=== PATIENT | male | born 1970 | race Caucasian/White ===

== ENCOUNTER 2025-09-13 13:54 | Outpatient (AMB) | payer OTHER, SELFPAY ==
--- NOTE | 2025-09-13 14:04 | A.OFFVIS_ITS ---
Vital Signs 09/13/25 14:17 Height 6 ft Weight 306 lb BMI 41.5 Intake Visit Reasons: ing hernia Intake Note: Patient presents for an assessment for umbilical hernia. Pt c/o; reports bulge, navel, reports he plays softball and notices some discomfort but no excrucating pain/discomfort. [employer] Required: No Accompanied by: Self / Same As Patient Allergies No Known Allergies Allergy (Verified 09/13/25 14:19) Medication List - Last Reconciled 09/13/25 by Michele Joe MD albuterol sulfate 90 mcg/actuation (Ventolin HFA) 2 puffs inhalation Q6H PRN escitalopram oxalate 10 mg PO DAILY semaglutide (weight loss) (Wegovy) mg subcut HPI HPI ing hernia: Details: 59-year-old male referred for a ventral hernia. He has noticed this mass on the abdominal above his umbilicus for about a year. He says that sometimes this gets bigger especially when he is standing up He denies GI complaints. He says that this has been causing some discomfort. He is morbidly obese but says he had been trying to be active to lose some weight recently. [facility] Medical History (Updated 09/13/25 @ 14:32 by Michele Joe MD) Epigastric hernia Depression Obese Surgical History History of vasectomy (~04/11/18) History of colonoscopy (~04/19/19) History of colonoscopy (~12/26/24) History of orthopedic surgery Family History Maternal Grandfather Malignant neoplasm of colon Brother Malignant neoplasm of colon Mother Hypertensive disorder Father Motor vehicle accident victim Social History Alcohol intake: current Alcohol intake frequency: holidays/special occasions only Patient Tobacco Use Status: Never used Tobacco Review of Systems Const Denies chills and Denies fever(s) Card Denies chest pain, Denies dyspnea and Denies dyspnea on exertion Resp Denies cough, Denies dyspnea and Denies dyspnea on exertion GI Denies hematochezia and Denies change in bowel habits Denies hematuria and Denies difficulty urinating Musc Denies back pain and Denies limited range of motion Neuro Denies focal weakness and Denies convulsions Psych Denies depression and Denies mood swings Physical Exam Vital Signs: BMI result Body Mass Index 41.5 Const Other: Morbidly obese General: comfortable and no acute distress Orientation/consciousness: patient oriented x3 Neck Neck: Yes no lymphadenopathy Resp Auscultation: clear to auscultation bilaterally Cardio Rhythm: regular rhythm GI Other: Palpable epigastric hernia, just above the umbilicus, about 3 cm, nonreducible Palpation (GI): Soft to palpation, nontender and no guarding Neuro General: patient oriented x3 Assessment & Plan Assessment & Plan (1) Epigastric hernia: Code(s): K43.9 - Ventral hernia without obstruction or gangrene Category: Medical Plan: He has this epigastric hernia as described above. He wants this repaired. I explained to him the technique of repair with possible mesh placement. I reviewed the risks including but not limited to bleeding, infections, recurrence, bowel injury, inherent risks of anesthesia, as well as the benefits and alternatives. I explained to him what to expect postoperatively He is morbidly obese so understands this has perioperative risks are higher He says he wants to proceed and understands the procedure well. Coding Level of Care Code New Pt Level 3 (20096) Diagnoses Epigastric hernia K43.9
[2025-09-13 14:17] VITALS: BMI 41.5
--- OUTSIDE RECORDS SUMMARY | 2025-09-13 16:41 | XMS_ITS | Data Portability ---
Author Organization [facility], Main Office Address [address] [place] [address] Care Team Providers Care Contracts Officer Name Role Phone SHARON WHITESIDE [employer] ROSA LEMOS Primary Care Provider MARIA DEL CARMEN PHAM Urologist Assessment No assessment recorded. Plan of Treatment Reminders Order Date Submit Date Provider Last Modified By Organization Details Last Modified Time Details Appointments FOLLO W UP 2025 10:30A M Rosa Lemos PALamonte Not available Not available Not available Lab PSA, total , serum or plasm a 2024 025 ILIANA [facility] (Centralized Electronic Ordering - All Locations), Patient Can Go To The Location Of Their Choice, 07/15/2025 08:07:32 TSH, ultra -sens itive , serum 2024 025 ILIANA [facility] (Centralized Electronic Ordering - All Locations), Patient Can Go To The Location Of Their Choice, 07/04/2025 14:06:30 lipid panel , serum 2024 025 ILIANA [facility] (Centralized Electronic Ordering - All Locations), Patient Can Go To The Location Of Their Choice, 07/04/2025 14:06:29 BMP, serum or plasm a 2024 025 ILIANA [facility] (Centralized Electronic Ordering - All Locations), Patient Can Go To The Location Of Their Choice, 07/04/2025 14:06:28 testo stero ne, free + total , serum 2024 025 ILIANA [facility] (Centralized Electronic Ordering - All Locations), Patient Can Go To The Location Of Their Choice, [id number] 07/04/2025 14:06:29 lipid panel , serum 2023 025 [email or web address] [facility] (Centralized Electronic Ordering - All Locations), Patient Can Go To The Location Of Their Choice, [id number] 07/13/2025 10:40:40 TSH + free T4, serum 2023 024 ILIANA [facility] (Centralized Electronic Ordering - All Locations), Patient Can Go To The Location Of Their Choice, [id number] 07/26/2024 08:08:30 PSA, total , serum or plasm a 2023 024 ILIANA [facility] (Centralized Electronic Ordering - All Locations), Patient Can Go To The Location Of Their Choice, [id number] 07/26/2024 08:08:31 Referral endoc rinirasema ogkennedy refer ral - Male hypog onadi sm. Inter ested in testo stero ne repla pete t. 2024 [facility]25 [facility] [address] [facility], [place], [address], 09/05/2025 13:35:19 sleep medic ine refer ral - Morbi d obesi ty,fa tigue . 2023 024 Sleep Medicine Services [facility], [address], [address], [place], [address], 09/22/2024 13:30:03 gastr rachel barros ist refer ral - F/u colon oscop y/ 2023 024 [email or web address] Whiteside MD, [address] [facility], [place], [address], 07/26/2024 10:38:54 Procedures None recor ded. Surgeries None recor ded. Imaging US, abdom inal wall - ? umbil ical herni a. 2024 025 [email or web address] [facility] (Ultrasound), [address] [place] [address], [address], 07/27/2025 13:15:52 Medication Orders Wegov y 1 mg/0. 5 mL subcu taneo us pen injec tor 2024 025 [facility] #[id number], [address] [place], [address], 07/14/2025 10:00:59 Zepbo und 7.5 mg/0. 5 mL subcu taneo us solut ion 2024 025 [facility] #[id number], [address] [place], [address], 04/24/2025 13:14:06 Wegov y 1 mg/0. 5 mL subcu taneo us pen injec tor 2023 024 [email or web address] [facility]acy #[id number], [address] [place], [address], 07/14/2025 09:24:51 Wegov y 0.5 mg/0. 5 mL subcu taneo us pen injec tor 2023 024 [id number], [address] [place], [address], 05/26/2025 09:54:55 Patient TargetsNo targets recorded. Patient Instructions Encounter Date Encounter Id Patient Instructions Last Modified By Organization Details Last Modified Time 07/11/2024 [id number] insomnia: care instructions Not available 07/11/2024 09:30:39 high cholesterol : care instructions Not available 07/11/2024 09:30:39 body mass index: care instructions Not available 07/11/2024 09:30:38 learning about healthy weight Not available 07/11/2024 09:30:38 hypothyroidism: care instructions Not available 07/11/2024 09:30:39 benign prostatic hyperplasia: care instructions Not available 07/11/2024 09:30:39 08/26/2024 [id number] body mass index: care instructions Not available 08/26/2024 11:17:01 learning about healthy weight Not available 08/26/2024 11:17:01 high cholesterol : care instructions Not available 08/26/2024 11:17:01 12/21/2024 [id number] body mass index: care instructions Not available 12/21/2024 09:37:15 learning about healthy weight Not available 12/21/2024 09:37:15 sleep apnea: car e instructions Not available 12/21/2024 09:37:15 hypogonadism: care instructions Not available 12/21/2024 09:37:15 03/24/2025 [id number] body mass index: care instructions Not available 03/24/2025 09:01:09 learning about healthy weight Not available 03/24/2025 09:01:09 sleep apnea: car e instructions Not available 03/24/2025 09:25:32 hypogonadism: care instructions Not available 03/24/2025 09:33:05 07/14/2025 [id number] insomnia: care instructions Not available 07/14/2025 10:00:57 body mass index: care instructions Not available 07/14/2025 09:45:52 learning about healthy weight Not available 07/14/2025 09:45:52 sleep apnea: car e instructions Not available 07/14/2025 09:53:40 hypothyroidism: care instructions Not available 07/14/2025 09:45:52 Reason for Referral [employer] Tender Referral for Screening for malignant neoplasm of colon F/u colonoscopy/ Referring Physician: Rosa Lemos, Internal Medicine, Encounter Date: 07/11/2024 Sleep Medicine Referral for Body mass index 40+ - severely obese Morbid obesity,fatigue. Referring Physician: Rosa Lemos Internal Medicine, Encounter Date: 07/11/2024 Endocrinology Referral for H ypothyroidism Male hypogonadism. Interested in testosterone replacement. Referring Physician: Rosa Lemos, Internal Medicine, Encounter Date: 07/14/2025 Results Created Date Observation Date Name Description Value Unit Range Abnormal Flag Note LastModifiedBy Organization Detail LastModifiedTime 07/05/20 24 07/06/2024 COMP. METAB OLIC PANEL (14) glucose 98 mg/dL 70-99 normal Not Available [facility] ([facility]) [address] [place], [address], 07/06/2024 06:09:50 07/05/20 24 07/06/2024 COMP. METAB OLIC PANEL (14) BUN 16 mg/dL 6-24 normal Not Available [facility] ([facility]) [address] [place], [address], 07/06/2024 06:09:50 07/05/20 24 07/06/2024 COMP. METAB OLIC PANEL (14) creatinine 1.07 mg/dL 0.76-1 .27 normal Not Available [facility] ([facility]) [address] [place], [address], 07/06/2024 06:09:50 07/05/20 24 07/06/2024 COMP. METAB OLIC PANEL (14) eGFR 82 mL/mi n/1.7 3 >59 normal Not Available [facility] ([facility]) [address] [place], [address], 07/06/2024 06:09:50 07/05/20 24 07/06/2024 COMP. METAB OLIC PANEL (14) BUN/creatini ne ratio 15 9-20 normal Not Available [facility] ([facility]) [address] [place], [address], 07/06/2024 06:09:50 07/05/20 24 07/06/2024 COMP. METAB OLIC PANEL (14) sodium 141 mmol/ L 134-14 4 normal Not Available [facility] ([facility]) [address] [place], [address], 07/06/2024 06:09:50 07/05/20 24 07/06/2024 COMP. METAB OLIC PANEL (14) potassium 4.7 mmol/ L 3.5-5. 2 normal Not Available [facility] ([facility]) [address] [place], [address], 07/06/2024 06:09:50 07/05/20 24 07/06/2024 COMP. METAB OLIC PANEL (14) chloride 105 mmol/ L 96-106 normal Not Available [facility] ([facility]) [address] [place], [address], 07/06/2024 06:09:50 07/05/20 24 07/06/2024 COMP. METAB OLIC PANEL (14) carbon dioxide, total 21 mmol/ L 20-29 normal Not Available [facility] ([facility]) [address] [place], [address], 07/06/2024 06:09:50 07/05/20 24 07/06/2024 COMP. METAB OLIC PANEL (14) calcium 9.7 mg/dL 8.7-10 .2 normal Not Available [facility] ([facility]) [address] [place], [address], 07/06/2024 06:09:50 07/05/20 24 07/06/2024 COMP. METAB OLIC PANEL (14) protein, total 6.7 g/dL 6.0-8. 5 normal Not Available [facility] ([facility]) [address] [place], [address], 07/06/2024 06:09:50 07/05/20 24 07/06/2024 COMP. METAB OLIC PANEL (14) albumin 4.3 g/dL 3.8-4. 9 normal Not Available [facility] ([facility]) [address] [place], [address], 07/06/2024 06:09:50 07/05/20 24 07/06/2024 COMP. METAB OLIC PANEL (14) globulin, total 2.4 g/dL 1.5-4. 5 Not Available [facility] ([facility]) [address] [place], [address], 07/06/2024 06:09:50 07/05/20 24 07/06/2024 COMP. METAB OLIC PANEL (14) bilirubin, total 0.3 mg/dL 0.0-1. 2 normal Not Available [facility] ([facility]) [address] [facility] [place], [address], 07/06/2024 06:09:50 07/05/20 24 07/06/2024 COMP. METAB OLIC PANEL (14) alkaline phosphatase 67 IU/L 44-121 normal Not Available [facility] ([facility]) [address] [facility] [place], [address], 07/06/2024 06:09:50 07/05/20 24 07/06/2024 COMP. METAB OLIC PANEL (14) AST (SGOT) 18 IU/L 0-40 normal Not Available [facility] ([facility]) [address] [facility] [place], [address], 07/06/2024 06:09:50 07/05/20 24 07/06/2024 COMP. METAB OLIC PANEL (14) ALT (SGPT) 17 IU/L 0-44 normal Not Available [facility] ([facility]) [address] [facility] [place], [address], 07/06/2024 06:09:50 07/05/20 24 07/06/2024 LIPID PANEL cholesterol, total 279 mg/dL 100-19 9 above high normal Not Available [facility] ([facility]) [address] [facility] [place], [address], 07/06/2024 06:09:50 07/05/20 24 07/06/2024 LIPID PANEL triglyceride s 215 mg/dL 0-149 above high normal Not Available [facility] ([facility]) [address] [place], [address], 07/06/2024 06:09:50 07/05/20 24 07/06/2024 LIPID PANEL HDL cholesterol 49 mg/dL >39 normal Not Available [facility] ([facility]) [address] [facility] [place], [address], 07/06/2024 06:09:50 07/05/20 24 07/06/2024 LIPID PANEL VLDL cholesterol karly 41 mg/dL 5-40 above high normal Not Available [facility] ([facility]) [address] [facility] [place], [address], 07/06/2024 06:09:50 07/05/20 24 07/06/2024 LIPID PANEL LDL chol calc ([facility]) 189 mg/dL 0-99 above high normal Not Available [facility] ([facility]) [address] [facility] [place], [address], 07/06/2024 06:09:50 07/05/20 24 07/06/2024 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 Not Available [facility] ([facility]) [address] [facility] [place], [address], 07/06/2024 06:09:50 07/25/2007/26/2024 LIPID PANEL cholesterol, total 248 mg/dL 100-19 9 above high normal Not Available [facility] ([facility]) [address] [facility] [place], [address], 07/26/2024 08:08:27 07/25/2007/26/2024 LIPID PANEL triglyceride s 214 mg/dL 0-149 above high normal Not Available [facility] ([facility]) [address] [facility] [place], [address], 07/26/2024 08:08:27 07/25/2007/26/2024 LIPID PANEL HDL cholesterol 45 mg/dL >39 normal Not Available [facility] ([facility]) [address] [place], [address], 07/26/2024 08:08:27 07/25/2007/26/2024 LIPID PANEL VLDL cholesterol karly 40 mg/dL 5-40 Not Available [facility] ([facility]) [address] [place], [address], 07/26/2024 08:08:27 07/25/2007/26/2024 LIPID PANEL LDL chol calc ([facility]) 163 mg/dL 0-99 above high normal Not Available [facility] ([facility]) [address] [place], [address], 07/26/2024 08:08:27 07/25/2007/26/2024 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 Not Available [facility] ([facility]) [address] [place], [address], 07/26/2024 08:08:27 07/25/2007/26/2024 ALT (SGPT ) ALT (SGPT) 12 IU/L 0-44 normal Not Available [facility] ([facility]) [address] [place], [address], 07/26/2024 08:08:28 07/25/2007/26/2024 TSH+F REE T4 TSH 3.120 uIU/m L 0.450- 4.500 normal Not Available [facility] ([facility]) [address] [place], [address], 07/26/2024 08:08:30 07/25/2007/26/2024 TSH+F REE T4 T4,free(dire ct) 1.21 NG/dL 0.82-1 .77 normal Not Available [facility] ([facility]) [address] [place], [address], 07/26/2024 08:08:30 07/25/2007/26/2024 PROST ATE-S PECIF IC AG prostate specific Ag 0.4 NG/mL 0.0-4. 0 normal Isna ECLIA metho dolog y. Accor ding to the Ameri can Urolo gical Assoc iatio n, Serum PSA shoul d decre ase and remai n at undet ectab le level s after radic al prost atect scarlett. The AUA defin es bioch emica l recur rence as an initi al PSA value 0.2 ng/mL or great er follo wed by a subse quent confi rmato ry PSA value 0.2 ng/mL or great er. Value s obtai makenzie with diffe rent assay metho ds or kits canno t be used inter guillaume eably . Resul ts canno t be inter prete d as absol chipewwa evide nce of the prese nce or absen ce of raúl gallardo se. Not Available [facility] ([facility]) [address] [facility], [place], [address], 07/26/2024 08:08:31 07/25/2007/26/2024 TESTO STERO NE,FR EE AND TOTAL testosterone 176 NG/dL 264-91 6 below low normal Adult male refer ence inter masha is based on a popul ation of healt hy nonob mo males (BMI <30) betwe en 19 and 39 years old. Mayra willis, et.al . JCEM 2017, 102;1 161-1 173. PMID: 74771 103. Not Available [facility] ([facility]) [address] [facility], [place], [address], 07/26/2024 20:06:29 07/25/2007/26/2024 TESTO STERO NE,FR EE AND TOTAL free testosterone (direct) 2.9 pg/mL 7.2-24 .0 below low normal Not Available [facility] ([facility]) [address] [facility], [place], [address], 07/26/2024 20:06:29 07/03/20 25 07/04/2025 BASIC METAB OLIC PANEL (8) glucose 91 mg/dL 70-99 normal Not Available [facility] ([facility]) [address] [place], [address], 07/04/2025 14:06:28 07/03/20 25 07/04/2025 BASIC METAB OLIC PANEL (8) BUN 13 mg/dL 6-24 normal Not Available [facility] ([facility]) [address] [place], [address], 07/04/2025 14:06:28 07/03/20 25 07/04/2025 BASIC METAB OLIC PANEL (8) creatinine 1.16 mg/dL 0.76-1 .27 normal Not Available [facility] ([facility]) [address] [place], [address], 07/04/2025 14:06:28 07/03/20 25 07/04/2025 BASIC METAB OLIC PANEL (8) eGFR 74 mL/mi n/1.7 3 >59 normal Not Available [facility] ([facility]) [address] [place], [address], 07/04/2025 14:06:28 07/03/20 25 07/04/2025 BASIC METAB OLIC PANEL (8) BUN/creatini ne ratio 11 9-20 normal Not Available [facility] ([facility]) [address] [place], [address], 07/04/2025 14:06:28 07/03/20 25 07/04/2025 BASIC METAB OLIC PANEL (8) sodium 139 mmol/ L 134-14 4 normal Not Available [facility] ([facility]) [address] [place], [address], 07/04/2025 14:06:28 07/03/20 25 07/04/2025 BASIC METAB OLIC PANEL (8) potassium 4.2 mmol/ L 3.5-5. 2 normal Not Available [facility] ([facility]) [address] [place], [address], 07/04/2025 14:06:28 07/03/20 25 07/04/2025 BASIC METAB OLIC PANEL (8) chloride 103 mmol/ L 96-106 normal Not Available [facility] ([facility]) [address] [place], [address], 07/04/2025 14:06:28 07/03/20 25 07/04/2025 BASIC METAB OLIC PANEL (8) carbon dioxide, total 21 mmol/ L 20-29 normal Not Available [facility] ([facility]) [address] [place], [address], 07/04/2025 14:06:28 07/03/20 25 07/04/2025 BASIC METAB OLIC PANEL (8) calcium 9.6 mg/dL 8.7-10 .2 normal Not Available [facility] ([facility]) [address] [place], [address], 07/04/2025 14:06:28 07/03/20 25 07/04/2025 LIPID PANEL cholesterol, total 231 mg/dL 100-19 9 above high normal Not Available [facility] ([facility]) [address] [place], [address], 07/04/2025 14:06:29 07/03/20 25 07/04/2025 LIPID PANEL triglyceride s 193 mg/dL 0-149 above high normal Not Available [facility] ([facility]) [address] [place], [address], 07/04/2025 14:06:29 07/03/20 25 07/04/2025 LIPID PANEL HDL cholesterol 48 mg/dL >39 normal Not Available [facility] ([facility]) [address] [place], [address], 07/04/2025 14:06:29 07/03/20 25 07/04/2025 LIPID PANEL VLDL cholesterol karly 35 mg/dL 5-40 Not Available [facility] ([facility]) [address] [place], [address], 07/04/2025 14:06:29 07/03/20 25 07/04/2025 LIPID PANEL LDL chol calc ([facility]) 148 mg/dL 0-99 above high normal Not Available [facility] ([facility]) [address] [place], [address], 07/04/2025 14:06:29 07/03/20 25 07/04/2025 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 Mayra willis et.al . JCEM 2017, 102;1 161-1 173. PMID: 74608 103. Not Available [facility] ([facility]) [address] [place], [address], 07/04/2025 14:06:29 07/03/20 25 07/04/2025 TESTO STERO NE,FR EE AND TOTAL free testosterone (direct) 4.3 pg/mL 7.2-24 .0 below low normal Not Available [facility] ([facility]) [address] [place], [address], 07/04/2025 14:06:29 07/03/20 25 07/04/2025 TSH TSH 4.370 uIU/m L 0.450- 4.500 normal Not Available [facility] ([facility]) [address] [facility], [place], [address], 07/04/2025 14:06:30 07/14/20 25 07/15/2025 PROST ATE-S PECIF IC AG prostate specific Ag 0.4 NG/mL 0.0-4. 0 normal Sina ECLIA metho dolog y. Accor ding to the Ameri can Urolo gical Assoc iatio n, Serum PSA shoul d decre ase and remai n at undet ectab le level s after radic al prost atect scarlett. The AUA defin es bioch emica l recur rence as an initi al PSA value 0.2 ng/mL or great er follo wed by a subse quent confi rmato ry PSA value 0.2 ng/mL or great er. Value s obtai makenzie with diffe rent assay metho ds or kits canno t be used inter guillaume eably . Resul ts canno t be inter prete d as absol chipewwa evide nce of the prese nce or absen ce of raúl gallardo se. Not Available [facility] ([facility]) [address] [facility], [place], [address], 07/15/2025 08:07:32 12/27/19 colon oscop y No observ ation record ed. [address], [address], 03/24/2025 09:00:12 07/28/20 25 07/28/2025 US, abdom en US Soft Tissue Abdome n Reason : R10.33 PERIUM BILICA L PAIN COMPAR LADI: None. FINDIN GS: High-r esolut ion, linear array imagin g of the superf icial soft tissue s of the suprau mbilic al region was perfor med in the area of the patien t's sympto ms. Examin ation was perfor med both withou t and with Valsal va, in the supine and standi ng positi ons. There is a fat-co ntaini ng midlin e hernia with sac measur ing 5.6 x 2.6 x 6.1 cm and neck 1.6 x 2.2 cm. Trace fluid noted within the sac. There is no sonogr aphica lly appare nt mass or fluid collec tion. IMPRES UMBERTO: Suprau mbilic al midlin e fat-co ntaini ng ventra l hernia with sac measur ing up to 6.1 cm and neck 1.6 x 2.2 cm. WSN: [id number] Orderi ng Physic miguel: Johnny Lemos ia Dictat ed By: Marcio Goldberg MD Dictat ed Date/T erika: 5:01 pm Review ed By: Marcio Goldberg MD Signed By: Marcio Goldberg MD Signed Date/T erika: 5:01 pm Transc ribed By: BERNARDO Transc ribed Date/T erika: 4:58 pm Patien t Class: Outpat ient [facility] (Outpt Imaging) [address] [place], [address], 08/03/2025 17:05:39 07/28/2007/28/2025 US, abdom inal wall No observ ation record ed. [facility] [address], [place], [address], 08/03/2025 18:44:13 Result Notes None recorded. Problems Name Problem SNOMED Code Status Onset Date Resolution Date Notes Provider Name and Address Organization Details Recorded Time Hypothyroid ism [id number] Active 2018 Rosa Lemos PA-C [address], [place], [address], [facility] 9 10:23:37 Insomnia 463922493 Active 2023 Rosa Lemos PA-C [address], [place], [address], [facility] 4 13:18:55 Generalized anxiety disorder 41940958 Active 2023 Rosa Lemos PA-C [address], [place], [address], [facility] 4 14:24:42 Mixed hyperlipide imelda 672769288 Active 2023 Rosa Lemos PA-C [address], [place], [address], [facility] 4 08:49:34 Hypogonadis m 28995341 Active 2023 Rosa Lemos PA-C [address], [place], [address], [facility] 4 13:56:45 Morbid obesity 642509301 [facility] 14:11:39 Obstructive sleep apnea syndrome 05029542 Active 2024 moderate as per sleep medicine JUVENTINO Keyes, [facility] 5 16:12:43 Body mass index 40+ - severely obese 574290476 Active 2024 Rosa Lemos PA-C [address], [place], [address], [facility] 5 08:59:42 Abdominal mass 358840219 Active 2024 Rosa Lemos PA-C [address], [place], [address], [facility] 5 12:50:24 Problem Notes None recorded. Procedures Surgical History Date Name Laterality Status Provider Name and Address Organization Details Recorded Time 5 Colonoscopy completed Mesha Reardon MA [facility] 07/14/2025 09:26:39 9 Colonoscopy completed Mesha Reardon MA [facility] 07/14/2025 09:26:28 8 vasectomy completed Bhumi Wallis MA [facility] 01/07/2019 13:07:40 Orthopedic Surgery completed Bhumi Wallis MA [facility] 01/05/2018 13:00:13 Imaging Results None recorded. Procedure Notes None recorded. Medical Equipment None Reported. Allergies No known drug allergies Medications Name Sig Start Date Stop Date Status Note LastModified by Organization Details LastModified Time trazodone 50 mg tablet TAKE 1 TABLET BY MOUTH EVERY DAY 03/24 completed Not Available Not Available Not Available sildenafi l 50 mg tablet Take 1 tablet every day by oral route for 9 days. 08/26 completed Not Available Not Available Not Available azithromy adrian 250 mg tablet 05/06 completed Not Available Not Available Not Available prednison e 20 mg tablet TO START TOMORROW MORNING, 02/26/25. TAKE 3 TABLETS BY MOUTH DAILY FOR 4 DAYS 03/24 completed Not Available Not Available Not Available doxycycli ne monohydra te 100 mg tablet 1 TABLET BY MOUTH 2 TIMES A DAY,X7 DAYS,INS TR:AVOID UV LIGHT EXPOSURE WHILE TAKING THIS MEDICATI ON. 03/24 completed Not Available Not Available Not Available benzonata te 100 mg capsule 05/06 completed Not Available Not Available Not Available albuterol sulfate HFA 90 mcg/actua tion aerosol inhaler INHALE 2 PUFFS BY MOUTH EVERY 4 HOURS NEEDED FOR SHORTNES S OF BREATH OR WHEEZING active Not Available Not Available No t Available escitalop maryana 10 mg tablet TAKE 1 TABLET BY MOUTH EVERY DAY 2024 active Not Available Not Available Not Avai lable rosuvasta tin 20 mg tablet Take by oral route for 90 days. 12/21 completed 12/21/24 patient never started and states he already made Rosa aware Not Available Not Available Not Available sodium,po tassium,m ag sulfates 17.5 gram-3.13 gram-1.6 gram oral soln TAKE 177ML BY MOUTH FOR 2 DOSES. SEE INSTRUCT IONS PROVIDED BY OFFICE. 12/21 completed Not Available Not Available Not Available Wegovy 2.4 mg/0.75 mL subcutane ous pen injector INJECT 2.4 MG SUBCUTAN EOUSLY EVERY WEEK 02/22 completed no longer covered by pt's insuranc e. Not Available Not Available Not Available Wegovy 1.7 mg/0.75 mL subcutane ous pen injector Inject 1.7 mg every week by subcutan eous route for 30 days. 12/07 completed Not Available Not Available Not Available Wegovy 1 mg/0.5 mL subcutane ous pen injector INJECT 1 MG SUBCUTAN EOUSLY EVERY WEEK FOR 30 DAYS. active Not Available Not Available No t Available Wegovy 0.25 mg/0.5 mL subcutane ous pen injector active Not Available Not Available Not Available Wegovy 0.5 mg/0.5 mL subcutane ous pen injector INJECT 0.5 MG SUBCUTAN EOUSLY EVERY WEEK FOR 30 DAYS. 05/26 completed Not Available Not Available Not Available Zepbound 10 mg/0.5 mL subcutane ous pen injector Inject 10 mg every week by subcutan eous route for 30 days. 04/25 completed Not Available Not Available Not Available Zepbound 5 mg/0.5 mL subcutane ous pen injector INJECT 5 MG SUBCUTAN EOUSLY WEEKLY 03/24 completed Not Available Not Available Not Available Zepbound 7.5 mg/0.5 mL subcutane ous solution Inject 7.5 mL every week by subcutan eous route for 30 days. 04/24 completed Not Available Not Available Not Available Vitals Date Recorded Body height Body mass index (BMI) Body weight Heart rate Oxygen saturation Body temperature Systolic And Diastolic Provider Name and Address Organization Details Last Updated DateTime 184.15 cm 41.2 kg/m2 009173. 45 g 82 /min 97 % 97.5 [degF] 125/89 mm[Hg] Valerie Patel [facility] [place] 08:52:05 Date Recorded Body weight Body mass index (BMI) Body height Provider Name and Address Organization Details Last Updated DateTime 02/22/2025 679290.3 g 40.3 kg/m2 184.15 cm Hali Dunlap LPN [facility] [place] 02/22/2025 14:52:57 Date Recorded Body height Body mass index (BMI) Body weight Oxygen saturation Heart rate Body temperature Systolic And Diastolic Provider Name and Address Organization Details Last Updated DateTime 5 184.15 cm 40.3 kg/m2 602388. 7 g 97 % 78 /min 97.9 [degF] 117/72 mm[Hg] [facility] Reardon [facility] 08:49:27 Date Recorded Body height Body mass index (BMI) Body weight Heart rate Oxygen saturation Body temperature Systolic And Diastolic Provider Name and Address Organization Details Last Updated DateTime 4 184.15 cm 41.5 kg/m2 747102. 63 g 87 /min 96 % 98 [degF] 128/85 mm[Hg] Hawa bazzi MA [facility] 4 08:38:40 Date Recorded Body height Body mass index (BMI) Body weight Oxygen saturation Heart rate Body temperature Systolic And Diastolic Provider Name and Address Organization Details Last Updated DateTime 5 184.15 cm 41.4 kg/m2 891768. 44 g 97 % 71 /min 98 [degF] 119/77 mm[Hg] Mesha Reardon MA [facility] [place] 5 09:23:58 Date Recorded Body height Body mass index (BMI) Body weight Heart rate Oxygen saturation Body temperature Systolic And Diastolic Provider Name and Address Organization Details Last Updated DateTime 4 184.15 cm 41.9 kg/m2 606956. 81 g 69 /min 95 % 98 [degF] 120/83 mm[Hg] Hali Dunlap LPN [facility] [place] 4 11:00:40 Social History Question Answer Notes LastModified by Organizat ion Details LastModified Time Tobacco Smoking Status Never Smoker Bhumi maradiaga [facility] 01/05/2018 12:58:59 Is Blood Transfusion Acceptable In An Emergency? Yes Information not available 01/05/2018 What Is Your Level Of Caffeine Consumption? Moderate Soda Information not available 01/07/2019 What Type Of Diet Are You Following? REGULAR Information not available 01/05/2018 Live Alone Or With Others? With Others , Son 18, Daughter 12 [email or web address] Information not available 01/05/2018 Do You Take Precautions To Prevent Distracted Driving? Yes Information not available 01/05/2018 How Often Do You Need To Have Someone Help You When You Read Instructions, Pamphlets, Or Other Written Material From Your Doctor Or Pharmacy? Never Information not available 01/05/2018 Have You Served In The ? No Information not available 01/05/2018 Have You Or Anyone In Your Household Had Any Of The Following Symptoms In The Last 14 Days: Sore Throat, Cough, Chills, Body Aches For Unknown Reasons, Shortness Of Breath For Unknown Reasons, Loss Of Smell, Loss Of Taste, Fever At Or Greater Than 100 Degrees Fahrenheit? No Addictivechultzki Information not available 05/24/2020 Are You Or Anyone In Your Household A Health Care Provider Or Emergency Responder? No [address] Information not available 05/24/2020 To The Best Of Your Knowledge Have You Been In Close Proximity To Any Individual Who Tested Positive For COVID-19? No [email or web address] Information not available 05/24/2020 What Was The Date Of Your Most Recent Tobacco Screening? 07/14/2025 [email or web address] Information not available 07/14/2025 How Many Children Do You Have? 2 Information not available 01/05/2018 Seat Belts Used Routinely Yes Information not available 01/05/2018 Smoke Alarm In Home Yes Information not available 01/05/2018 Are You Passively Exposed To Smoke? No Information not available 01/05/2018 How Much Tobacco Do You Smoke? No Information not available 01/05/2018 Do You Use Sunscreen Routinely? Yes Information not available 01/05/2018 Sex: Unknown Functional Status Question Answer Note LastModified by Organizat ion Details LastModified Time What is your level of alcohol consumption? Occasional Information not available 01/05/2018 Are you currently employed? Yes Information not available 01/05/2018 Are you able to walk independently without assistance or assistive devices? YESWOREST [email or web address] Information not available 07/14/2025 Are you able to care for yourself independently? Yes Information not available 01/05/2018 What is your exercise level? Moderate Information not available 01/07/2019 Mental Status None recorded. Family History Relationship Description Onset Age of this Age Resolved Age Notes LastModified by Organization Details LastModified Time Maternal Grandfather Malignant neoplasm of colon [facility] 68 [facility] Not available 01/05/2018 13:41:15 Brother Malignant neoplasm of colon brothe r alive age 60/[facility] Not available 01/05/2018 13:24:00 Mother Hypertensive disorder Mom is 81/201 8 , DJD, reside s in ns home [facility] Not available 01/05/2018 13:22:05 Father [facility] victim [facility] 31 [facility] Not available 01/05/2018 13:22:51 Medical History Condition Response High Cholesterol Y Immunizations Vaccine Type Date Status Note Provider Nam e and Address Organization Details Recorded Time COVID-19, mRNA, LNP-S, PF, 30 mcg/0.3 mL dose 12/28/19 [address] [facility] 05/06/2024 12:53:07 COVID-19, mRNA, LNP-S, PF, 30 mcg/0.3 mL dose 01/18/20 [facility] 12:53:07 COVID-19, mRNA, LNP-S, PF, 30 mcg/0.3 mL dose 08/10/[address] [facility] 05/06/2024 12:53:07 COVID-19, mRNA, LNP-S, PF, hi-sucrose, 30 mcg/0.3 mL 07/18/[address] [facility] 05/06/2024 12:53:07 Influenza, split virus, quadrivalent, PF 07/18/20 [address] [facility] 05/06/2024 12:53:07 Influenza, split virus, quadrivalent, PF 08/10/20 21 completed Milla contreras MA null, [facility] 05/06/2024 12:53:07 Influenza, split virus, quadrivalent, PF 08/27/20 20 completed Milla contreras MA null, [facility] 05/06/2024 12:53:07 zoster recombinant 07/16/20 24 completed Hali Dunlap LPN null, [facility] 08/26/2024 11:00:54 COVID-19, mRNA, LNP-S, PF, hi-sucrose, 30 mcg/0.3 mL 08/10/20 24 completed JUVENTINO Keyes, [facility] 08/26/2024 11:00:54 zoster recombinant 12/08/19 25 completed FEROZ Overton, [facility] 12/21/2024 08:41:07 zoster recombinant 07/16/20 24 completed Not Available [facility] 07/14/2025 08:53:21 Tdap 01/06/20 18 completed Not Available [facility] 10/29/2019 02:21:47 Influenza, split virus, quadrivalent, PF 08/23/20 18 cancelled patient objection Not Available [facility] 10/29/2019 02:22:16 Influenza, split virus, trivalent, PF 07/11/20 24 completed Rosa Lemos PA-C [address], [address], [facility] 07/11/2024 12:06:02 Influenza, split virus, trivalent, PF 07/14/20 25 completed Mesha Reardon MA null, [facility] 07/14/2025 14:27:53 Past Encounters Encounter ID Performer Location Encounter Start Date Encounter Closed Date Diagnosis/Indication Diagnosis SNOMED-CT Code Diagnosis ICD10 Code Diagnosis IMO Codes Diagnosis Note [id number] Vince carey MD Main Office [address] [address] 01/05/2018 12:34:31 01/05/2018 13:53:19 Adult health examination 084467179 Z00.00 Family his tory of cancer of colon 771178178 Z80.0 Administra tion of viral vaccine 71236931 Z23 Hyperlipidemia 07200880 E78.5 Vasectomy requested 1839 89628 Z30.2 [id number] Rosa Lemos PA-C Main Office [address] [facility] [address] [place] [address] 08/23/2018 14:01:28 08/23/2018 15:22:44 Needs influenza immunization 020509919 Z23 Left lower zone pneumonia 279790339 J18.1 Pt. is asymptomat ic. Due to atypical pneumonia presentati on,. will recheck XRAys to make sure LLL pneumonia resolved. [id number] Christine robles MD Main Office [address] [facility] [address] [place] [address] 01/07/2019 12:53:40 01/07/2019 14:16:07 Adult health examination 345136231 Z00.00 Screening for malignant neoplasm of colon 309141730 Z12.11 Hyperlipidemia 77381877 E78.00 repeat fasting labs, continue low fatr diet and weight loss. Body mass index 30+ - obesity 890991612 Z68.35 continue weight watchers program and exercise. Fatigue 44819680 R53.83 Obesity 609103777 E66.9 [id number] Christine robles MD Telehealt [address] [facility] [address] [place] [address] 05/24/2020 14:39:17 05/24/2020 15:23:03 Exposure to viral disease 7724844641 55625 Z03.818 headaches, mild cough congestion , will book for covid testing Allergic rhinitis 229779 04 J30.9 most likely allergies pt to start zyrtec, not interested in flonase [id number] Poncho Boyd MD Main Office [address] [facility] [address] [place] [address] 05/06/2024 12:45:41 05/06/2024 13:36:32 Hyperlipidemia 30616437 E78.00 repeat fasting labs, continue low fatr diet and weight loss. Insomnia 926721699 G47.0 0 ? if secondary to stress or anxiety causing insomnia. WE will try trazodone 50 mg 1 hr before bedtime and revisit in 4-6 weeks. Anxiety 08216569 F41.9 Transition of care from emergency department to self-care 9147751863 68330 Z76.89 [id number] Poncho Boyd MD Main Office [address] [facility] [address] [place] [address] 07/11/2024 08:22:37 07/11/2024 09:36:20 Adult health examination 086819717 Z00.00 recom seasonal vaccines , COVID booster and f.u and shingrix. Body mass index 40+ - severely obese 712540015 Z68.41 Morbid obesity and presence of metabolic disease , mixed hyperlipid emia. High risk for cardiovasc ular compaction s. Recom to screen for presence of obstructiv e sleep apnea and begin GLP-1 for weight loss. WE discussed possible side effects of nausea first 2-4 weeks and change in bowels , constipati on or diarrhea. WE will f/u in 6 weeks. Hyperlipidemia 65831300 E78.00 repeat fasting labs, continue low fatr diet and weight loss. Hypothyroidism 29758699 E03.9 repeat tsh Insomnia 647690618 G47.0 0 continue trazodone 50 mg Mixed hyperlipidemia 267 399079 E78.2 Pt. is hesitant to begin statin now. WE will work on weigh reduction via GLP-1 addition , low calorie low fat diet and exercise. Repeat lipids in 4-6 m. Generalize d anxiety disorder 00647599 F41.1 significan tly improved symptoms with minimal side effects. Pt is also seeing therapist through the [facility]. Benign pro static hyperplasia 548802127 N40.0 Varicella vaccination 68 550689 Z23 Needs infl uenza immunization 556609515 Z23 19 YEARS AND OLDER ONLY Screening for malignant neoplasm of colon 902612920 Z12.11 [id number] Poncho Boyd MD Main Office [address] [facility] [address] [place] [address] 08/26/2024 10:24:34 08/26/2024 11:23:17 Body mass index 40+ - severely obese 136446318 Z68.41 Morbid obesity and presence of metabolic disease , mixed hyperlipid emia. High risk for cardiovasc ular compaction s. Recom to screen for presence of obstructiv e sleep apnea ( scheduled fro November) . Pt. is on wegovy 0.5 mg for last 3 weeks. Reports no sign appetite change. NO weight loss since last visit. Tolerated it well. willing to progress dose up to 1 mg weekly. WE will f/u in 3 m or sooner if dose is not well tolerated. Hyperlipidemia 41817332 E78.00 Pt. is not taking rosuvastat in. Hypogonadism 21511801 E2 9.1 referral was made for sleep study. Pt. is scheduled for November. Morbid obesity 335625449 E66.01 Morbid obesity and presence of metabolic disease , mixed hyperlipid emia. High risk for cardiovasc ular compaction s. Recom to screen for presence of obstructiv e sleep apnea ( scheduled fro November) . Pt. is on wegovy 0.5 mg for last 3 weeks. Reports no sign appetite change. NO weight loss since last visit. Tolerated it well. willing to progress dose up to 1 mg weekly. WE will f/u in 3 m or sooner if dose is not well tolerated. [id number] Rahat Vasquez MD Main Office [address] [facility] [address] [facility] [place] [address] 12/21/2024 08:37:11 12/21/2024 09:16:50 Body mass index 40+ - severely obese 155604807 Z68.41 Morbid obesity and metabolic disease. 5 lb weight loss with aerobic exercise 4x per week and resistance training 2x per week as well as good portion control with three meals per day. He has been taking 1.7 mg of Wegovy since last visit in September. Plan is to increase dose of Wegovy to 2.4 mg. F/u 3 m. Mixed hyperlipidemia 267 332019 E78.2 Pt is not currently taking rosuvastat in. He is working on weight loss with increase in physical activity and good poor control with diet. Will recheck lipids before next annual physical. Hypogonadism 78884510 E2 9.1 Pt was diagnosed with recently diagnosed with DARSHAN. Pt is scheduled for follow up for CPAP titration. We will monitor his testostero ne in response to treatment of DARSHAN. If no improvemen t, the plan is to refer to endocrinol ogkennedy for further evaluation . Obstructiv e sleep apnea syndrome 89105751 G47.33 Pt recently dx with moderate DARSHAN. He will be undergoing a sleep study for titration and fit of CPAP mask. We will follow up in 3 months to discuss adherence to CPAP and progress with weight loss. Morbid obesity 167571081 E66.01 Morbid obesity and metabolic disease. 5 lb weight loss with aerobic exercise 4x per week and resistance training 2x per week as well as good portion control with three meals per day. He has been taking 1.7 mg of Wegovy since last visit in September. Plan is to increase dose of Wegovy to 2.4 mg. F/u 3 m. [id number] Poncho Boyd MD Main Office [address] [facility], [place] [address] 03/24/2025 08:40:26 03/24/2025 09:40:16 Body mass index 40+ - severely obese 092807046 Z68.41 E66.813 [id number] Morbid obesity and metabolic disease. Current BMI is 40.3. Pt is engaged in regular exercise activity at least 4 times weekly via soft ball and walking. Following low calorie diet and avoid excess carbs. Eats regularly. Recom to titrate dose of zepbound to 7.5 mg weekly for 4 weeks, then 10 mg weekly for 4-8 weeks. Plan weight check for 3 m. Mixed hyperlipidemia 267 042900 E78.2 Pt is not currently taking rosuvastat in. He is working on weight loss with increase in physical activity and good poor control with diet. We will recheck lipids . Obstructiv e sleep apnea syndrome 78217261 G47.33 Pt recently dx with moderate DARSHAN. Just began using CPAP . Increase zepbound to 7.5 mg weekly for 4 weeks, then 10 mg weekly until f/u visit. Primary insomnia 6069804 F51.01 [id number] Pt is on CPAP now and have been winning off trazodone for the last 2 weeks. At this point he is on 25 mg Male hypogonadism 163596 06 E29.1 389819 due to OBS. recommend to retest testostero n levels before next visit. Acquired hypothyroidism 498470771 E03.9 49160 repeat tsh Abdominal mass 232841073 R19.00 1736733666 hernia is very likely. no current sign symptoms . readdress at next visit in 3 m. If still present , order imaging/ [id number] Poncho Boyd MD Main Office [address] [facility] [place], [place] [address] 07/14/2025 08:51:51 07/14/2025 10:10:17 Adult health examination 798070849 Z00.00 Pt received flu vac today. Recom pneumonia vaccine Prevnar 20. WE reviewed labs /PSA results. colonoscop y is up to date. Needs infl uenza immunization 443750888 Z23 19 YEARS AND OLDER ONLY Body mass index 40+ - severely obese 110237793 Z68.41 334064 Morbid obesity and metabolic disease. Current BMI is 41.4. Pt is engaged in regular exercise activity at least 4-5 times weekly via soft ball and walking. Following low calorie diet and avoid excess carbs. Eats regularly. Wegovy is at 1 mg weekly . Continue for 4 more weeks, then titrate to 1.7 mg weekly. F/u 3 m, Mixed hyperlipidemia 267 519978 E78.2 Much improved LDL and TRG with increase in activity. Pt exercises daily. Hypothyroidism 00285886 E03.9 TSH is stable. repeat yearly. Hypogonadism 20445950 E2 9.1 Pt was diagnosed with recently diagnosed with DARSHAN. Pt is scheduled for follow up for CPAP titration. We will monitor his testostero ne in response to treatment of DARSHAN. If no improvemen t, the plan is to refer to endocrinol saad for further evaluation . Screening for malignant neoplasm of prostate 027598721 Z12.5 199102 Requires vaccination 723 764533 Z23 959977 Generalize d anxiety disorder 64745284 F41.1 JORDIN is 0. continue escitalopr am 10 mg. Obstructiv e sleep apnea syndrome 45187631 G47.33 Using CPAP. Insomnia 750468999 G47.0 0 improved since using CPAP. Pt stopped trazodone. Periumbilical pain 18175 3005 R10.33 924330 periumbili karly mass with tenderness , ? umbilical hernia. SChedule ultrasound . Health Concerns Section Related Observation LastModified by Organization Detai ls LastModified Time None Recorded Concern Status LastModified by Organization Details LastModified Time None Recorded Advance Directives Directive None Recorded Payers Insurance Date Sequence Insurance Name Policy Number Policy Tomlinson Covered Member ID Tomlinson Member ID Guarantor Name 11/11/2023 1 [facility] [id number] Lexus Hoang Rehor [id number] Mayur Rehor 08/12/2025 1 [facility] [id number] Mayur C Rehor [id number] Mayur Rehor 08/01/2025 1 [facility] ([facility]) [id number] Mayur C Rehor [id number] Mayur Rehor Notes Date Note Type Note Provider Name and Address Organization Details Recorded Time 4 text/htm l Generic HPI TemplateReported by [email or web address] year old male for annual PE. Last physical was pre covid. Last colonoscopy was 5 years ago and is due to repeat this year.Morbid obesity. BMI is up to 41.5. Pre pandemic was 35.8. PT. was started on medication for generalized anxiety 6 weeks ago and on trazodone for sleep. Pt. is doing sign better and is able to begin regular exercise and better portion control.Exercise--- 5 times weekly walking briskly for about 40 minutes.Non smoker. ETOH--- occasional only. NO drugs.Hyperlipidemia. LDL is 189, TRG 215, HDL 49. Advised to start rosuvastatin 20 mg , but is hesitant to add another medicaton to this mix .JORIDN score is 0 on escitalopram added 5 weeks ago and trazodone for sleep. All is now significantly improved.ROS as noted in the HPI Rosa Lemos PA-C [address] [address], [place], [address], [facility] 07/11/2024 12:13:24 4 text/htm l ROS as noted in the HPI 54 year old male for f/u on weight management. PT. was started on Wegovy on 07/11/24. He is currently on 0.5 mg dose weekly. BMI is 41.9. Pt. gained couple of lbs since the last visit.Labs showed high LDL. PT. was started on rosuvastatin 20 mg. Normal TSH, PSA , low testosterone , normal glucose and cmp. Pt. has arabella scheduled for sleep medicine in November. Pt. reports less anxiety and less fatigue. Yara maradiaga, [facility] 09/05/2024 14:13:10 5 text/htm l HyperlipidemiaReported by PatientHPIFor type of hyperlipidemia, patient reportscombined. For duration, patient reportschronic. For control, patient reportsnot at goal(ldl 163 in july, trg 214, tc 248, hdl 45.). For risk factors, patient reportsobesity. For compliance, patient reportscompliant with dietandexercises. For complications, patient reportsno coronary artery disease,no peripheral artery disease, andno cardiovascular disease. For current therapy, (no meds).ROS as noted in the HPI 54 year old male for f/u on weight management. Pt. was started on Wegovy on 07/11/24. He is currently taking 1.7 mg dose. BMI is 41.2. Pt lost 5 lbs since last visit 4 months ago. Labs showed high LDL. Pt is not currently taking rosuvastatin. Normal TSH, PSA, low testosterone, normal glucose and CMP. Pt had home sleep study done in November for moderate sleep apnea and is awaiting CPAP titration study to be booked. He is exercising 4 days per week walking 2 miles, resistance training twice per week, and will be starting softball league soon which will be 2-3 times per week. He reports good portion control with regard to diet and eating 3 meals per day. He reports improvement in his anxiety symptoms and feels less fatigued.Hypogonadism secondary to sleep apnea. Yara maradiaga [facility] 12/28/2024 16:23:47 5 text/htm l HyperlipidemiaReported by PatientHPIFor type of hyperlipidemia, patient reportscombined. For duration, patient reportschronic. For control, patient reportsnot at goal(ldl 163 in july, trg 214, tc 248, hdl 45.). For risk factors, patient reportsobesity. For compliance, patient reportscompliant with dietandexercises. For complications, patient reportsno coronary artery disease,no peripheral artery disease, andno cardiovascular disease. For current therapy, (no meds). ObesityReported by PatientHPIFor associated symptoms, patient reportshypothyroidismbut reportsno chronic illness,no prader-willi syndrome, andno hypothyroidism(not currently on thyroid meds. tsh in july was in the normal range.). For lifestyle changes, patient reportsnot losing weightbut reportsno changes in living situationandexercising more. For diagnosis summary, patient reportsdiagnosis: obesityandadditional diagnosis: elevated cholesterol/lipids. For context, patient reportsno inhaled steroidsandno oral steroids. For co-morbidities, patient reportsno new co-morbidities since last visit. For nutrition, patient reportseats mostly healthy diet,eats low carbohydrate diet,restricting concentrated sugars, andwhole grain foods. For physical activity, patient reportsreported frequency of moderate level of physical activity per week: 2-4 days. For medication education, patient reportsunderstands potential side effectsandunderstands administration.BMI today is 40.3.ROS as noted in the HPI 54 year old male for f/u on weight management/DARSHAN. Pt. was started on Wegovy on 07/11/24. Med was discontinued in February due to failure to lose weight. Pt was on max dose. He now is on Zepbound 7.5 mg for the last 2 weeks. Tolerates it well, but is not noticing any appetite changes. Will plan to increase dose to 10 mg. Hali Dunlap LPN [facility] 04/25/2025 15:04:32 5 text/htm l Generic HPI TemplateReported by [email or web address] year old male for annual wellness visit.Colonoscopy in december , no polyps found. pt is on 5 year colo schedule.Morbid obesity. BMI is up to 41.4. Pre pandemic was 35.8. PT. was started on medication for generalized anxiety 6 weeks ago and on trazodone for sleep. Pt. is doing sign better and is able to begin regular exercise and better portion control.Exercise--- 5 times weekly walking briskly for about 40 minutes.Non smoker. ETOH--- occasional only. NO drugs.Hyperlipidemia. LDL is 148 from 189, TRG 193 from 215, HDL 48. Advised to start rosuvastatin 20 mg , but is hesitant to add another medicaton to this mix .JORDIN score is 0 on escitalopram 10 mg .C/o R. mid to lower abdominal ? mass. Tender at times, worse with straining or coughing, first noticed in spring.ROS as noted in the HPI Rosa Lemos PA-C [address] [facility], [place], [address], [facility] 07/14/2025 10:49:43
--- OUTSIDE RECORDS SUMMARY | 2025-09-13 16:41 | XMS_ITS | Continuity of Care Document ---
Author Organization [facility], Main Office Address [address] [facility] [place] [address] Care Team Providers Care Hip Hop Dancer Name Role Phone SHARON WHITESIDE Javascript Developer [phone] ROSA LEMOS Primary Care Provider MARIA DEL CARMEN PHAM Urologist Assessment No assessment recorded. Plan of Treatment Reminders Order Date Submit Date Provider Last Modified By Organization Details Last Modified Time Details Appointments FOLLOW UP 2025 10:30A M Rosa Lemos PALamonte Not available Not available Not available Lab PSA, total, serum or plasma 2024 025 ILIANA [facility] (Centralized Electronic Ordering - All Locations), Patient Can Go To The Location Of Their Choice, [address] 07/15/2025 08:07:32 Referral endocrin ology referral - Male hypogona dism. Interest ed in testkev hernandez ent. 2024 025 ATHENAFAX [facility] -(Surgeon), [address], [place], [address], 09/05/2025 13:35:19 Procedures None recorded . Surgeries None recorded . Imaging US, abdomina l wall - ? umbilica l hernia. 2024 025 brie [facility] (Ultrasound), [address] [place], [address], 07/27/2025 13:15:52 Medication Orders Wegovy 1 mg/0.5 mL subcutan eous pen injector 2024 025 [id number], [address], [place], [address], 07/14/2025 10:00:59 Patient TargetsNo targets recorded. Patient Instructions Encounter Date Encounter Id Patient Instructions Last Modified By Organization Details Last Modified Time 07/14/2025 [id number] insomnia: care instructions Not available 07/14/2025 10:00:57 body mass index: care instructions Not available 07/14/2025 09:45:52 learning about healthy weight Not available 07/14/2025 09:45:52 sleep apnea: car e instructions Not available 07/14/2025 09:53:40 hypothyroidism: care instructions Not available 07/14/2025 09:45:52 Reason for Referral Endocrinology Referral for H ypothyroidism Male hypogonadism. Interested in testosterone replacement. Referring Physician: Rosa Lemos, Internal Medicine, Encounter Date: 07/14/2025 Results Created Date Observation Date Name Description Value Unit Range Abnormal Flag Note LastModifiedBy Organization Detail LastModifiedTime 07/03/2007/04/2025 BASIC METAB OLIC PANEL (8) glucose 91 mg/dL 70-99 normal Not Available [facility] ([facility]) [address] [place], [address], 07/04/2025 14:06:28 07/03/20 25 07/04/2025 BASIC METAB OLIC PANEL (8) BUN 13 mg/dL 6-24 normal Not Available [facility] ([facility]) [address] [place], [address], 07/04/2025 14:06:28 07/03/20 25 07/04/2025 BASIC METAB OLIC PANEL (8) creatinine 1.16 mg/dL 0.76-1 .27 normal Not Available [facility] ([facility]) [address] [place], [address], 07/04/2025 14:06:28 07/03/20 25 07/04/2025 BASIC METAB OLIC PANEL (8) eGFR 74 mL/mi n/1.7 3 >59 normal Not Available [facility] ([facility]) [address] [place], [address], 07/04/2025 14:06:28 07/03/20 25 07/04/2025 BASIC METAB OLIC PANEL (8) BUN/creatini ne ratio 11 9-20 normal Not Available [facility] ([facility]) [address] [place], [address], 07/04/2025 14:06:28 07/03/20 25 07/04/2025 BASIC METAB OLIC PANEL (8) sodium 139 mmol/ L 134-14 4 normal Not Available [facility] ([facility]) [address] [facility], [place], [address], 07/04/2025 14:06:28 07/03/20 25 07/04/2025 BASIC METAB OLIC PANEL (8) potassium 4.2 mmol/ L 3.5-5. 2 normal Not Available [facility] ([facility]) [address] [facility], [place], [address], 07/04/2025 14:06:28 07/03/20 25 07/04/2025 BASIC METAB OLIC PANEL (8) chloride 103 mmol/ L 96-106 normal Not Available [facility] ([facility]) [address] [place], [address], 07/04/2025 14:06:28 07/03/20 25 07/04/2025 BASIC METAB OLIC PANEL (8) carbon dioxide, total 21 mmol/ L 20-29 normal Not Available [facility] ([facility]) [address] [place], [address], 07/04/2025 14:06:28 07/03/20 25 07/04/2025 BASIC METAB OLIC PANEL (8) calcium 9.6 mg/dL 8.7-10 .2 normal Not Available [facility] ([facility]) [address] [place], [address], 07/04/2025 14:06:28 07/03/20 25 07/04/2025 LIPID PANEL cholesterol, total 231 mg/dL 100-19 9 above high normal Not Available [facility] ([facility]) [address] [place], [address], 07/04/2025 14:06:29 07/03/20 25 07/04/2025 LIPID PANEL triglyceride s 193 mg/dL 0-149 above high normal Not Available [facility] ([facility]) [address] [place], [address], 07/04/2025 14:06:29 07/03/20 25 07/04/2025 LIPID PANEL HDL cholesterol 48 mg/dL >39 normal Not Available [facility] ([facility]) [address] [place], [address], 07/04/2025 14:06:29 07/03/20 25 07/04/2025 LIPID PANEL VLDL cholesterol karly 35 mg/dL 5-40 Not Available [facility] ([facility]) [address] [place], [address], 07/04/2025 14:06:29 07/03/20 25 07/04/2025 LIPID PANEL LDL chol calc ([facility]) 148 mg/dL 0-99 above high normal Not Available [facility] ([facility]) [address] [place], [address], 07/04/2025 14:06:29 07/03/20 25 07/04/2025 LIPID PANEL LDL calc comment: CREAM MAKER Not Available [facility] ([facility]) [address] [place], [address], 07/04/2025 14:06:29 07/03/20 25 07/04/2025 TESTO STERO NE,FR EE AND TOTAL testosterone 349 NG/dL 264-91 6 normal Adult male refer ence inter masha is based on a popul ation of healt hy nonob mo males (BMI <30) betwe en 19 and 39 years old. Crescencioasif son, et.al . JCEM 2017, 102;1 161-1 173. PMID: 32881 103. Not Available [facility] ([facility]) [address] [place], [address], 07/04/2025 14:06:29 07/03/2007/04/2025 TESTO STERO NE,FR EE AND TOTAL free testosterone (direct) 4.3 pg/mL 7.2-24 .0 below low normal Not Available [facility] ([facility]) [address] [place], [address], 07/04/2025 14:06:29 07/03/2007/04/2025 TSH TSH 4.370 uIU/m L 0.450- 4.500 normal Not Available [facility] ([facility]) [address] [place], [address], 07/04/2025 14:06:30 07/14/2007/15/2025 PROST ATE-S PECIF IC AG prostate specific [...] t be inter prete d as absol miguel evide nce of the prese nce or absen ce of raúl reid disea se. Not Available [facility] ([facility]) [address] [facility], [place], [address], 07/15/2025 08:07:32 07/28/2007/28/2025 US, abdom en US Soft Tissue Abdome [...] and neck 1.6 x 2.2 cm. WSN: [id number] Orderi ng Physic miguel: Johnny Lemos Dictat ed By: Marcio Goldberg MD Dictat ed Date/T erika: 5:01 pm Review ed By: Marcio Goldberg MD Signed By: Marcio Goldberg MD Signed Date/T erika: 5:01 pm Transc ribed By: CSB Transc ribed Date/T erika: 4:58 pm Patien t Class: Outpat ient [facility] (Outpt Imaging) [address], [place], [address], 08/03/2025 17:05:39 07/28/2007/28/2025 US, abdom inal wall No observ ation record ed. [facility] [address], [place], [address], 08/03/2025 18:44:13 Result Notes None recorded. Problems Name Problem SNOMED Code Status Onset Date Resolution Date Notes Provider Name and Address Organization Details Recorded Time Hypothyroid ism 14275398 Active 2018 Rosa FIGUEROA-C [address], [place], [address], [facility] 9 10:23:37 Insomnia 760578516 Active 2023 Rosa FIGUEROA-C [address], [place], [address], [facility] 4 13:18:55 Generalized anxiety disorder 29794031 Active 2023 Rosa FIGUEROA-C [address], [place], [address], [facility] 4 14:24:42 Mixed hyperlipide imelda 272614775 Active 2023 Rosa Lemos [employer] [address], [place], [address], [facility] 4 08:49:34 Hypogonadis m 20596483 Active 2023 Rosa FIGUEROA-C [address], [place], [address], [facility] 4 13:56:45 Morbid obesity 502474066 Active 2023 Yara maradiaga [facility] 4 14:11:39 Obstructive sleep apnea syndrome 89645380 Active 2024 moderate as per sleep medicine JUVENTINO Keyes [facility] 5 16:12:43 Body mass index 40+ - severely obese 121682998 Active 2024 Rosa Lemos [employer] [address], [place], [address], [facility] 5 08:59:42 Abdominal mass 835241502 Active 2024 Rosa Lemos PA-C [address] [facility] [address], [place], [address], [facility] 5 12:50:24 Problem Notes None recorded. Procedures Surgical History Date Name Laterality Status Provider Name and Address Organization Details Recorded Time 5 Colonoscopy completed Mesha Reardon MA [facility] 07/14/2025 09:26:39 9 Colonoscopy completed Mesha Reardon MA [facility] 07/14/2025 09:26:28 8 vasectomy completed Bhumi Wallis [facility] 01/07/2019 13:07:40 Orthopedic Surgery completed Bhumi Wallis [facility] 01/05/2018 13:00:13 Imaging Results None recorded. Procedure [...] by subcutan eous route for 30 days. 06/13/ 2025 07/14 /2025 completed Not Available Not Available Not Available Vitals Date Recorded Body height Body mass index (BMI) Body weight Oxygen saturation Heart rate Body temperature Systolic And Diastolic Provider Name and Address Organization Details Last Updated DateTime 5 184.15 cm 41.4 kg/m2 682036. 44 g 97 % 71 /min 98 [degF] 119/77 mm[Hg] Mesha Reardon MA [facility] 5 09:23:58 Social History Question Answer Notes LastModified by Organizat ion Details LastModified Time Tobacco Smoking Status Never Smoker Bhumi Bimal maradiaga [facility] 01/05/2018 12:58:59 Is Blood Transfusion Acceptable In [...] Or Greater Than 100 Degrees Fahrenheit? No Information not available 05/24/2020 Are You Or Anyone In Your Household A Health Care Provider Or Emergency Responder? No Information not available 05/24/2020 To The Best Of Your Knowledge Have You Been In Close Proximity To Any Individual Who Tested Positive For COVID-19? No Information not available 05/24/2020 What Was The Date Of Your Most Recent Tobacco Screening? 07/14/2025 [email or web address] Information not available 07/14/2025 How Many Children [...] independently without assistance or assistive devices? YESWOREST [email or web address] Information not available 07/14/2025 Are you able to care for yourself independently? Yes Information not available 01/05/2018 What is your exercise level? Moderate Information not available 01/07/2019 Mental Status None recorded. Family History Relationship Description Onset Age of this Age Resolved Age Notes LastModified by Organization Details LastModified Time Maternal Grandfather Malignant neoplasm of colon MGF at 68 mdalessandro Not available 01/05/2018 13:41:15 Brother Malignant neoplasm of colon brothe r alive age 60/had polyps mdalessandro Not available 01/05/2018 13:24:00 Mother Hypertensive disorder Mom is 81/201 8 , DJD, [facility] mdalessandro Not available 01/05/2018 13:22:05 Father Motor vehicle accident victim Dad 31 in MVA mdalessandro Not available 01/05/2018 13:22:51 Medical History Condition Response High Cholesterol Y Immunizations Vaccine Type Date Status Note Provider Nam e and Address Organization Details Recorded Time COVID-19, mRNA, LNP-S, PF, 30 mcg/0.3 mL dose 12/28/19 21 completed FEROZ [facility] [place] 05/06/2024 12:53:07 COVID-19, mRNA, LNP-S, PF, 30 mcg/0.3 mL dose 01/18/20 21 completed Milla contreras FEROZ null, [facility] 05/06/2024 12:53:07 COVID-19, mRNA, LNP-S, PF, 30 mcg/0.3 mL dose 08/10/20 21 completed Milla contreras FEROZ null, [facility] 05/06/2024 12:53:07 COVID-19, mRNA, LNP-S, PF, hi-sucrose, 30 mcg/0.3 mL 07/18/20 23 completed Milla contreras FEROZ null, [facility] 05/06/2024 12:53:07 Influenza, split virus, quadrivalent, PF 07/18/20 23 completed Milla contreras FEROZ null, [facility] 05/06/2024 12:53:07 Influenza, split virus, quadrivalent, PF 08/10/20 21 completed Milla contreras FEROZ null, [facility] 05/06/2024 12:53:07 Influenza, split virus, quadrivalent, PF 08/27/20 20 completed Milla contreras FEROZ null, [facility] 05/06/2024 12:53:07 zoster recombinant 07/16/20 24 completed Hali Dunlap ACCOUNTING POLICY CONSULTANT null, [facility] 08/26/2024 11:00:54 COVID-19, mRNA, LNP-S, PF, hi-sucrose, 30 mcg/0.3 mL 08/10/20 24 completed Hali Tobare, ACCOUNTING POLICY CONSULTANT null, [facility] 08/26/2024 11:00:54 zoster recombinant 12/08/19 25 completed Valerie Patel MA null, [facility] 12/21/2024 08:41:07 zoster recombinant 07/16/20 24 completed Not Available [facility] 07/14/2025 08:53:21 Tdap 01/06/20 18 completed Not Available [facility] 10/29/2019 02:21:47 Influenza, split virus, quadrivalent, PF 08/23/20 18 cancelled patient objection Not Available [facility] 02:22:16 Influenza, split virus, trivalent, PF 07/11/20 24 completed Rosa Lemos PA-C [address] [facility] [address], [place], [address], [facility] 07/11/2024 12:06:02 Influenza, split virus, trivalent, PF 07/14/20 25 completed FEROZ Mantilla, [facility] 07/14/2025 14:27:53 Past Encounters Encounter ID Performer Location Encounter Start Date Encounter Closed Date Diagnosis/Indication Diagnosis SNOMED-CT Code Diagnosis ICD10 Code Diagnosis IMO Codes Diagnosis Note [id number] Poncho Boyd MD Main Office [address] [address] 07/14/2025 08:51:51 07/14/2025 10:10:17 Adult health examination 634656851 Z00.00 Pt received flu vac today. Recom pneumonia vaccine Prevnar 20. WE reviewed labs /PSA results. colonoscop y is up to date. Needs infl uenza immunization 724565739 Z23 19 YEARS AND OLDER ONLY Body mass index 40+ - severely obese 412384525 Z68.41 867714 Morbid obesity and metabolic disease. Current BMI is 41.4. Pt is engaged in regular exercise activity at least 4-5 times weekly via soft ball and walking. Following low calorie diet and avoid excess carbs. Eats regularly. Wegovy is at 1 mg weekly . Continue for 4 more weeks, then titrate to 1.7 mg weekly. F/u 3 m, Mixed hyperlipidemia 267 282974 E78.2 Much improved LDL and TRG with increase in activity. Pt exercises daily. Hypothyroidism 92913638 E03.9 TSH is stable. repeat yearly. Hypogonadism 80850600 E2 9.1 Pt was diagnosed with recently diagnosed with DARSHAN. Pt is scheduled for follow up for CPAP titration. We will monitor his testostero ne in response to treatment of DARSHAN. If no improvemen t, the plan is to refer to endocrinol ogy for further evaluation . Screening for malignant neoplasm of prostate 726231996 Z12.5 719377 Requires vaccination 723 039075 Z23 205158 Generalize d anxiety disorder 23675278 F41.1 JORDIN is 0. continue escitalopr am 10 mg. Obstructiv e sleep apnea syndrome 83192195 G47.33 Using CPAP. Insomnia 983148150 G47.0 0 improved since using CPAP. Pt stopped trazodone. Periumbilical pain 64518 3005 R10.33 330771 periumbili karly mass with tenderness , ? umbilical hernia. SChedule ultrasound . Health Concerns Section Related Observation LastModified by Organization Detai ls LastModified Time None Recorded Concern Status LastModified by Organization Details LastModified Time None Recorded Payers Encounter Date Sequence Insurance Name Policy Number Policy [place] Covered Member ID Tom[place]inson Member ID Guarantor Name 07/14/2025 1 [facility] [id number] Mayur Rehor [id number] Mayur Rehor Notes Date Note Type Note Provider Name and Address Organization Details Recorded Time 07/14/2025 text/html Generic HPI TemplateReported by [email or web address] year old male for annual wellness visit.Colonoscopy [...] noted in the HPI Rosa Lemos PA-C [address], [place], [address], [facility] [place] 07/14/2025 10:49:43
--- OUTSIDE RECORDS SUMMARY | 2025-09-13 16:41 | XMS_ITS | Clinical Summary ---
Author Organization [facility] Address [address] [place] [address] Phone Care Team Providers Care Rubber Extrusion Machine Operator Name Role Phone Rosa Potts Primary Care Provider [phone] Allergies No known active allergies Medications sodium,potassi um,mag sulfates (Suprep Bowel Prep Kit) 17.5-3.13-1.6 gram recon soln bowel prep kit oral solution Take 177ML by mouth for 2 doses. SEE INSTRUCTIONS PROVIDED BY OFFICE. 1 kit 5 Active escitalopram (LEXAPRO) 10 mg tablet Take 1 tablet (10 mg total) by mouth 1 (one) time each day. for 30 days Active Wegovy 2.4 mg/0.75 mL injection pen INJECT 2.4 MG SUBCUTANEOUSLY EVERY WEEK 5 Active traZODone (DESYREL) 50 mg tablet Take 1 tablet (50 mg total) by mouth 1 (one) time each day. Active Surgical History Surgery Date Site/Laterality Comments COLONOSCOPY VASECTOMY FINGER SURGERY Medical History Medical History Date Comments Anxiety Hyperlipidemia Social History Tobacco Use Types Packs/Day Years Used Date Smoking Tobacco: Never Smokeless Tobacco: Never Tobacco Cessation:Counseling Given: Not Answered Alcohol Use Standard Drinks/Week Comments Yes 0 (1 standard drink = 0.6 oz pur e alcohol) Interpersonal Safety Answer Date Record ed Physical Abuse Unrecognized value 12/26/2024 Verbal Abuse Unrecognized value 12/26/2024 Sex and Gender Information Value Date Recorded Sex Assigned at Male 12/26/2024 9:54 AM EDT Legal Sex Male 4:11 AM EST Gender Identity Male 12/26/2024 9:54 AM EDT Sexual Orientation Straight 12/26/2024 9: 55 AM EDT Obstetrics History Last Filed Vital Signs Vital Sign Reading Time Taken Comments Blood Pressure 107/83 12/26/2024 2:41 PM EDT Pulse 77 12/26/2024 2:41 PM EDT Temperature 36.4 C (97.5 F) 12/26/2024 1:41 PM EDT Respiratory Rate 16 12/26/2024 2:41 PM EDT Oxygen Saturation 99% 12/26/2024 2:41 PM EDT Inhaled Oxygen Concentration - - Weight 141 kg (310 lb) 12/26/2024 1:41 PM EDT Height 185.4 cm (6' 1 ) 12/26/2024 1:41 PM EDT Body Mass Index 40.9 12/26/2024 1:41 PM EDT Plan of Treatment Health Maintenance Due Date Last Done Comments Hepatitis B Vaccines (1 of 3 - 19+ 3-dose series) 1988 Pneumococcal Vaccine: 50+ Years (1 of 1 - PCV) 2019 RSV Immunization Adult Patients (1 - Risk 50-74 years 1-dose series) 2019 Depression Screening 10/12/2024 Cholesterol Screening (Lipid Panel) 10/21/2024 HIV Screening 10/21/2024 Hepatitis C Screening 10/21/2024 Social Influencers of Health Screening 10/21/2024 COVID-19 Vaccine ( season) 2025 08/10/2024, 07/18/2023, 08/10/2021, Additional history exists Influenza Vaccine (#1) 2025 , 07/18/2023, 08/10/2021, Additional history exists DTaP,Tdap,and Td Vaccines (2 - Td or Tdap) 01/06/2028 01/05/2018 Colorectal Cancer Screening: Colonoscopy 12/26/2034 12/26/2024 Zoster Vaccines Completed 12/08/2024, 07/16/2024 HIB Vaccines Aged Out No longer eligi ble based on patient's age to complete this topic HPV Vaccines Aged Out No longer eligi ble based on patient's age to complete this topic Hepatitis A Vaccines Aged Out No long er eligible based on patient's age to complete this topic IPV Vaccines Aged Out No longer eligi ble based on patient's age to complete this topic MMR Vaccines Aged Out No longer eligi ble based on patient's age to complete this topic Meningococcal ACWY Vaccine Aged Out N o longer eligible based on patient's age to complete this topic Meningococcal B Vaccine Aged Out No l onger eligible based on patient's age to complete this topic RSV Immunization Patients Under 20 months Aged Out No longer eligible based on patient's age to complete this topic Varicella Vaccines Aged Out No longer eligible based on patient's age to complete this topic Procedures Procedure Name Priority Date/Time Associated Diagnosis Comments COLONOSCOPY Routine 12/26/2024 2:20 PM EDT Colon cancer screening from Last 3 Months or Most Recently Relevant to Health Maintenance Results * COLONOSCOPY Anesthesia - MAC; [facility] ENDOSCOPY (12/26/2024 2:20 PM EDT) Anatomical Region Laterality Modality Other 12/26/2024 1:44 PM EDT Impressions 12/26/2024 2:21 PM EDT - Non-bleeding internal hemorrhoids. - The examination was otherwise normal on direct and retroflexion views. - No specimens collected. Recommendation: - Discharge patient to home. - Resume previous diet. - Continue present medications. - Repeat colonoscopy in 5 years for surveillance. - Return to GI office PRN. Narrative 12/26/2024 2:21 PM EDT [facility] GI Patient Name: Mayur Louise Procedure Date: 12/26/2024 1:44 PM Date of : 1970 Age: 54 Room: ROOM 14 Gender: Male Note Status: Finalized Attending MD: Omega Ariza MD, Procedure Date No Time: 12/26/2024 Procedure: Colonoscopy Indications: Colon cancer screening in patient at increased risk: Family history of 1st-degree relative with colon polyps before age 60 years Providers: Omega Ariza MD Referring MD: Omega Ariza MD Medicines: Monitored Anesthesia Care Complications: No immediate complications. Estimated Blood Loss: Estimated blood loss: none. Procedure: Pre-Anesthesia Assessment: - ASA Grade Assessment: III - A patient with severe systemic disease. - After reviewing the risks and benefits, the patient was deemed in satisfactory condition to undergo the procedure. After I obtained informed consent, the scope was passed under direct vision. Throughout the procedure, the patient's blood pressure, pulse, and oxygen saturations were monitored continuously.The Colonoscope was introduced through the anus and advanced to the cecum, identified by appendiceal orifice and ileocecal valve. The colonoscopy was performed without difficulty. The patient tolerated the procedure well. The quality of the bowel preparation was good. Findings: Non-bleeding internal hemorrhoids were found during retroflexion. The hemorrhoids were small. The exam was otherwise without abnormality on direct and retroflexion views. Procedure Code(s): --- Professional --- G0105, Colorectal cancer screening; colonoscopy on individual at high risk Diagnosis Code(s): --- Professional --- Z83.71, Family history of colonic polyps CPT copyright 2020 [employer]. All rights reserved. The codes documented in this report are preliminary and upon longwall foreman review may be revised to meet current compliance requirements. Omega Ariza MD 12/26/2024 2:21:07 PM This report has been signed electronically.Omega Ariza MD Number of Addenda: 0 Note Initiated On: 12/26/2024 1:44 PM Scope In: Scope Out: Endoscopy Department at [facility] - [address] [place] [id number] Procedure Note Omega Ariza MD - 12/26/2024 [facility] GI Patient Name: Mayur Louise Procedure Date: 12/26/2024 1:44 PM Date of : 1970 Age: 54 Room: ROOM 14 Gender: Male Note Status: Finalized Attending MD: Omega Ariza MD, Procedure Date No Time: 12/26/2024 Procedure: Colonoscopy Indications: Colon cancer screening in patient at increasedrisk: Family history of 1st-degree relative with colon polyps before age 60 years Providers: Omega Ariza MD Referring MD: Omega Ariza MD Medicines: Monitored Anesthesia Care Complications: No immediate complications. Estimated Blood Loss: Estimated blood loss: none. Procedure: Pre-Anesthesia Assessment: - ASA Grade Assessment: III - A patient with severe systemic disease. - After reviewing the risks and benefits, thepatient was deemed in satisfactory condition to undergo the procedure. After I obtained informed consent, the scope was passed under direct vision. Throughout theprocedure, the patient's blood pressure, pulse, and oxygen saturations were monitored continuously.The Colonoscope was introduced through the anus and advanced to the cecum, identified by appendiceal orifice and ileocecal valve. The colonoscopy was performed without difficulty. The patient tolerated the procedure well. The quality of the bowel preparation was good. Findings: Non-bleeding internal hemorrhoids were found during retroflexion. The hemorrhoids were small. The exam was otherwise without abnormality ondirect and retroflexion views. Procedure Code(s): --- Professional --- G0105, Colorectal cancer screening; colonoscopy on individual at high risk Diagnosis Code(s): --- Professional --- Z83.71, Family history of colonic polyps CPT copyright 2020 [employer]. All rights reserved. The codes documented in this report are preliminary and upon longwall foreman reviewmay be revised to meet current compliance requirements. Omega Ariza MD 12/26/2024 2:21:07 PM This report has been signed electronically.Omega Ariza MD Number of Addenda: 0 Note Initiated On: 12/26/2024 1:44 PM Scope In: Scope Out: Endoscopy Department at [facility] - [address] [place] [id number] IMPRESSION: - Non-bleeding internal hemorrhoids. - The examination was otherwise normal on directand retroflexion views. - No specimens collected. Recommendation: - Discharge patient to home. - Resume previous diet. - Continue present medications. - Repeat colonoscopy in 5 years for surveillance. - Return to GI office PRN. Omega Ariza MD GI~PROCEDURE ORDERABLES Final Result from Last 3 Months or Most Recently Relevant to Health Maintenance Insurance [employer] Care Teams Rubber Extrusion Machine Operator Relationship Specialty Start Date End Date Rosa Potts PA [address] [facility] [place], [place] [address] [place], [place] PCP - General 07/22/24
== END 2025-09-13 14:37 | disposition home or self-care (01) ==
LOC: HO.HGS 13:54
PROVIDERS: PCP Family Medicine; Visit Provider Surgery
DX: K43.9 Ventral hernia without obstruction or gangrene (principal)
CPT/HCPCS: 99203